=== PATIENT | male | born 1975 | race Hispanic/Latino ===

== ENCOUNTER 2022-06-14 08:38 | Emergency (ER) | payer OTHER ==
[~2022-06-14] VITALS: Ht 175.3 cm; Wt 90.7 kg
[2022-06-14] MEDS ORDERED: EPINEPHRINE PF 1MG (1:1,000) 1 MG/ML AMP ONE (08:42)
[2022-06-14] MEDS ORDERED: SOLU-MEDROL 125MG VIAL ONE (08:43)
[2022-06-14] MEDS ORDERED: DiphenhydrAMINE HCL 50 MG/ML VIAL ONE (08:44)
[2022-06-14] MEDS ORDERED: FAMOTIDINE 20MG VIAL IV ONE ×2 (08:44→09:30)
[2022-06-14] MEDS ORDERED: DEXAMETHASONE SOD PHOSPHATE 4 MG/ML 1ML VIAL ONE (08:47)
[2022-06-14] MEDS ORDERED: ONDANSETRON 4MG INJ ONE (08:49)
[2022-06-14] MEDS ORDERED: KETOROLAC 30MG VIAL (30MG/ML) ONE (08:59)
[2022-06-14] MEDS ORDERED: 0.9%NACL 1000ML 1,000 ML IV SCH (09:00)
[2022-06-14 09:02] LABS: BASOPHILS % (AUTO) 1.4 % (0.0-5.0); HEMATOCRIT 38.4 % (42-54); LYMPHOCYTES % (AUTO) 44.1 % (21.0-51.0); MEAN CORPUSCULAR HEMOGLOBIN 29.7 pg (27.0-33.0); MEAN CORPUSCULAR HGB CONC 33.9 g/dL (32.0-36.0); MEAN CORPUSCULAR VOLUME 87.7 fL (79-99); MONOCYTES % (AUTO) 6.6 % (3.0-13.0); PLATELET COUNT (AUTO) 314 K/uL (130-400); RED BLOOD CELL COUNT(AUTO) 4.38 MIL/uL (4.50-6.20); RED CELL DISTRIBUTION WIDTH 12.1 % (11.0-15.5); WHITE BLOOD COUNT (AUTO) 11.8 K/uL (4.8-10.8)
[2022-06-14 09:10] LABS: CREATININE 1.5 mg/dL (0.5-1.5); POTASSIUM 3.2 mmol/L (3.5-5.1)
[2022-06-14 09:17] LABS: ALBUMIN 4.4 g/dL (3.5-5.0); TOTAL PROTEIN, SERUM 7.7 g/dL (6.0-8.3)
[2022-06-14] MEDS ORDERED: DEXAMETHASONE SOD PHOSPHATE 4 MG/ML 1ML VIAL IV ONE (09:30)
[2022-06-14] MEDS ORDERED: DiphenhydrAMINE HCL 50 MG/ML VIAL IV ONE ×2 (09:30→11:00)
[2022-06-14] MEDS ORDERED: ONDANSETRON 4MG INJ IVP ONE (09:30)
[2022-06-14] MEDS ORDERED: KETOROLAC 30MG VIAL (30MG/ML) IVP ONE (09:30)
[2022-06-14] MEDS ORDERED: SOLU-MEDROL 125MG VIAL IVP ONE (09:30)
[2022-06-14] MEDS ORDERED: 0.9%NACL 1000ML 1,000 ML IV ONE (09:30)
[2022-06-14 09:46] VITALS: BP 129/79
[2022-06-14] MEDS ORDERED: EPINEPHRINE 1MG/10ML(1:10,000) 0.1 MG/ML SYG IVP ONE (10:00)
[2022-06-14] MEDS ORDERED: POTASSIUM BICARB/CIT AC 25 MEQ TABLET.EFF PO STA (10:31)
[2022-06-14] MEDS ORDERED: 0.9% NACL 500ML IV.SOLN 500 ML IV ONE (11:00)
[2022-06-14] MEDS ORDERED: PRED5TAB PO (11:48)
[2022-06-14] MEDS ORDERED: LORA10TA7 PO (11:48)
== END 2022-06-14 12:10 | disposition home or self-care (01) ==
LOC: EDH 08:38
DX: T63.441A Toxic effect of venom of bees, accidental (unintentional), initial encounter (principal); Z79.52 Long term (current) use of systemic steroids; Z79.1 Long term (current) use of non-steroidal anti-inflammatories (NSAID); Y92.89 Other specified places as the place of occurrence of the external cause
CPT/HCPCS: 99284; 96374; 96375 ×2; 84484; 80053; 85025; 36415; 96376; 96372; J1100; J1200 ×2; J3490; J2930; J0171; J2405; J1885